=== PATIENT | male | born 1995 | race Caucasian/White ===

== ENCOUNTER 2017-11-02 20:00 | Emergency (ER) | payer SELFPAY ==
[~2017-11-02] VITALS: Ht 167.6 cm; Wt 72.0 kg
[2017-11-02 20:05] VITALS: BP 140/83; PULSE 117; RESP 18; TEMP 98; O2SAT 98
--- NOTE | 2017-11-02 20:17 | PD ---
HPI Chief Complaint: Injury Time Seen by Provider: 20:06 Travel History International Travel<30 days: No Contact w/Intl Traveler<30days: No Traveled to known affect area: No History of Present Illness HPI 22-year-old male complains of pain in the right hand third finger. Patient states that he was dancing and fell and injured his right third finger. Patient denies any other extremity injury. Patient states the pain is sharp pain severe pain localized the right third finger. Patient denies any pain radiation. On a scale from 1-10 the pain is a 10. Patient states that he fell and hit his head on the floor. Patient denies loss of consciousness. Patient denies headache or neck pain. Patient denies any visual change. Patient denies any nausea vomiting. Patient denies any problem with memory. PFSH Past Medical History Medical History: Denies Significant Hx Diminished Hearing: No Tetanus Vaccination: Unknown Influenza Vaccination: No Past Surgical History Surgical History: No Previous Surgery Social History Alcohol Use: No Tobacco Use: No Substance Use: No Allergies-Medications (Allergen,Severity, Reaction): Coded Allergies: No Known Allergies (Unverified , 11/02/17) Reported Meds & Prescriptions Reported Meds & Active Scripts Active No Active Prescriptions or Reported Medications Review of Systems General / Constitutional: No: Fever Eyes: No: Visual changes HENT: No: Headaches Cardiovascular: No: Chest Pain or Discomfort Respiratory: No: Shortness of Breath Gastrointestinal: No: Abdominal Pain Genitourinary: No: Dysuria Musculoskeletal: Positive: Pain Skin: No Rash Neurologic: No: Weakness Psychiatric: No: Depression Endocrine: No: Polydipsia Hematologic/Lymphatic: No: Easy Bruising Physical Exam Narrative GENERAL: Well-nourished, well-developed patient. SKIN: Focused skin assessment warm/dry. HEAD: Normocephalic. EYES: No scleral icterus. No injection or drainage. NECK: Supple, trachea midline. No JVD or lymphadenopathy. CARDIOVASCULAR: Regular rate and rhythm without murmurs, gallops, or rubs. RESPIRATORY: Breath sounds equal bilaterally. No accessory muscle use. GASTROINTESTINAL: Abdomen soft, non-tender, nondistended. MUSCULOSKELETAL: No cyanosis, or edema. BACK: Nontender without obvious deformity. No CVA tenderness. Patient has obvious deformity of the right third finger at the PIP joint. Good capillary refill distally. Sensory function distally intact. Data Data Last Documented VS Vital Signs Date Time Temp Pulse Resp B/P (MAP) Pulse Ox O2 Delivery O2 Flow Rate FiO2 11/02/17 20:05 98.0 117 18 140/83 (102) 98 Orders Orders Finger ([id number]) (11/02/17 20:10) Splint Or Brace Apply/Monitor (11/02/17 21:19) Ed Discharge Order (11/02/17 21:21) MDM Medical Decision Making Medical Screen Exam Complete: Yes Emergency Medical Condition: Yes Interpretation(s) Last Impressions Finger X-Ray 11/02/172009 Signed Impressions: Service Date/Time: Sunday, November 02, 2017 20:18 - CONCLUSION: Negative exam. No fracture or dislocation. No pre-reduction films are available at this institution. Alnoso Culp MD Differential Diagnosis Differential diagnosis including fracture, dislocation. Narrative Course 22-year-old male with right hand third finger injury. Finger splint. Diagnosis Primary Impression: Dislocation, finger closed Qualified Codes: S63.259A - Unspecified dislocation of unspecified finger, initial encounter Patient Instructions: General Instructions Additional Instructions: Ice elevation. Motrin as needed for pain. Follow-up with hand surgeon or orthopedist. Med/Other Pt SpecificInfo: Prescription(s) given Scripts Ibuprofen (Ibuprofen) 600 Mg Tab 600 MG PO TID for Pain, #30 TAB 0 Refills Prov: Jp Bean MD 11/02/17 Disposition: 01 DISCHARGE HOME Condition: Stable Jp Bean MD Nov 02, 2017 20:17
--- NOTE | 2017-11-02 20:45 | RADRPT ---
EXAM DATE/TIME: 11/02/2017 20:18 [facility] COMPARISON: No previous studies available for comparison. INDICATIONS : Post reduction right third digit MEDICAL HISTORY : None. SURGICAL HISTORY : None. ENCOUNTER: Initial ACUITY: 1 day PAIN SCORE: 5/10 LOCATION: Right 3rd MCPJ FINDINGS: Examination of the third digit of the right hand demonstrates no evidence of fracture or dislocation. No radiopaque foreign bodies are seen. The soft tissues are intact. CONCLUSION: Negative exam. No fracture or dislocation. No pre-reduction films are available at this institut ion. Alonso Culp MD on November 02, 2017 at 20:42 Board Certified Radiologist. This report was verified electronically.
[2017-11-02] MEDS ORDERED: IBUP-232 PO (21:30)
== END 2017-11-02 21:45 | disposition home or self-care (01) ==
LOC: NEPD 20:00
DX: S63.252A Unspecified dislocation of right middle finger, initial encounter (principal); W18.30XA Fall on same level, unspecified, initial encounter; Y93.41 Activity, dancing
CPT/HCPCS: 29130; 73140